=== PATIENT | female | born 1960 | race Caucasian/White ===

== ENCOUNTER 2018-05-17 08:50 | Day surgery (SDC) | payer MEDICAID ==
[2018-05-17] MEDS ORDERED: GABA-532 PO (09:32)
[2018-05-17] MEDS ORDERED: METF500T PO (09:33)
[2018-05-17] MEDS ORDERED: LISI-600 PO (09:33)
[2018-05-17] MEDS ORDERED: LORA10TA7 PO (09:34)
[2018-05-17] MEDS ORDERED: SIMV20TA5 PO (09:34)
[2018-05-17] MEDS ORDERED: CEPH-572 PO (09:35)
== END 2018-05-17 11:04 | disposition home or self-care (01) ==
LOC: WOUND CARE 08:50
PROVIDERS: ATTEND Surgery
DX: E11.621 Type 2 diabetes mellitus with foot ulcer (principal); L97.411 Non-pressure chronic ulcer of right heel and midfoot limited to breakdown of skin; E11.40 Type 2 diabetes mellitus with diabetic neuropathy, unspecified; E11.65 Type 2 diabetes mellitus with hyperglycemia
CPT/HCPCS: 36416; 82948; 99205; A4414; A6196; L3260

== ENCOUNTER 2018-05-24 08:45 | Outpatient (CLI) | payer MEDICAID ==
[~2018-05-24 08:45] MED LIST: CEPH-572 PO; GABA-532 PO; LISI-600 PO; LORA10TA7 PO; METF500T PO; SIMV20TA5 PO
== END 2018-05-24 10:32 | disposition home or self-care (01) ==
LOC: WOUND CARE 08:45 → EDSTATUS 09:00 → WOUND CARE 10:32
PROVIDERS: ATTEND Surgery
DX: E11.621 Type 2 diabetes mellitus with foot ulcer (principal); L97.411 Non-pressure chronic ulcer of right heel and midfoot limited to breakdown of skin; E11.40 Type 2 diabetes mellitus with diabetic neuropathy, unspecified; E11.65 Type 2 diabetes mellitus with hyperglycemia
CPT/HCPCS: 82948; 99215; A4414

== ENCOUNTER 2018-07-12 08:18 | Outpatient (CLI) | payer MEDICAID ==
[~2018-07-12 08:18] MED LIST changes: -CEPH-572 PO
== END 2018-07-12 10:20 | disposition home or self-care (01) ==
LOC: WOUND CARE 08:18
PROVIDERS: ATTEND Surgery
DX: E11.621 Type 2 diabetes mellitus with foot ulcer (principal); L97.511 Non-pressure chronic ulcer of other part of right foot limited to breakdown of skin; E11.65 Type 2 diabetes mellitus with hyperglycemia; E11.40 Type 2 diabetes mellitus with diabetic neuropathy, unspecified
CPT/HCPCS: 99215

== ENCOUNTER 2023-02-18 18:22 | Inpatient (IN) | payer MEDICAID, OTHER ==
[~2023-02-18] VITALS: Ht 162.6 cm; Wt 79.1 kg
[~2023-02-18 18:22] MED LIST changes: -LISI-600 PO; +LISI20TA28 PO; +SIMV-42 PO; -SIMV20TA5 PO
[2023-02-18 18:40] LABS: BASOPHILS # (AUTO) 0.1 X10'3 (0-0.2); BASOPHILS % (AUTO) 0.8 % (0-1); EOSINOPHILS # (AUTO) 0.2 X10'3 (0-0.9); EOSINOPHILS % (AUTO) 1.7 % (0-6); HEMATOCRIT 45.6 % (35.0-45.0); HEMOGLOBIN 15.5 g/dl (12.0-16.0); LYMPHOCYTES # (AUTO) 4.1 X10'3 (1.1-4.8); LYMPHOCYTES % (AUTO) 38.3 % (21-51); MEAN CORPUSCULAR HEMOGLOBIN 29.8 PG (27.0-31.0); MEAN CORPUSCULAR HGB CONC 33.9 g/dL (33.0-36.5); MEAN PLATELET VOLUME 8.8 FL (7.4-10.4); MONOCYTES # (AUTO) 0.9 X10'3 (0-0.9); MONOCYTES % (AUTO) 8.3 % (2-12); NEUTROPHILS # (AUTO) 5.4 X10'3 (1.8-7.7); NEUTROPHILS % (AUTO) 50.9 % (42-75); PLATELET COUNT 315 X10'3 (140-440); RED BLOOD COUNT 5.19 X10'6 (4.20-5.60); WHITE BLOOD COUNT 10.7 X10'3 (4.5-11.0)
[2023-02-18 18:58] LABS: ALANINE AMINOTRANSFERASE 33 U/L (12-78); ALBUMIN 4.4 G/DL (3.4-5.0); ALBUMIN/GLOBULIN RATIO 1.1 (1.1-1.5); ALKALINE PHOSPHATASE 111 IU/L (46-116); ANION GAP 16 (8-16); ASPARTATE AMINO TRANSFERASE 33 U/L (10-37); BILIRUBIN,TOTAL 0.6 MG/DL (0.1-1.0); BLOOD UREA NITROGEN 20 MG/DL (7-18); BUN/CREATININE RATIO 16.4 (10.0-20.0); CALCIUM 9.6 MG/DL (8.5-10.1); CHLORIDE 100 MMOL/L (99-107); CREATININE 1.22 MG/DL (0.40-0.90); GLUCOSE 76 MG/DL (70-104); MAGNESIUM 1.1 MG/DL (1.5-2.4); SODIUM 139 MMOL/L (135-145); TOTAL CARBON DIOXIDE 22.9 MMOL/L (24-32); TOTAL PROTEIN 8.3 G/DL (6.4-8.2); eGFR 45 ML/MIN
[2023-02-18 19:02] LABS: POTASSIUM 2.7 MMOL/L (3.5-5.1)
[2023-02-18] MEDS ORDERED: potassium chloride 10mEq ER tablet PO ONE (21:00)
[2023-02-18] MEDS ORDERED: potassium Cl 20 mEq SR tablet PO ONE (22:55)
[2023-02-18] MEDS ORDERED: magnesium 2GM in 50ml NS 50 ML IV ONE (22:55)
[2023-02-18 23:38] LABS: PHOSPHORUS 2.8 MG/DL (2.3-4.5)
[2023-02-18] MEDS: potassium Cl 40MEQ/1/2NS 520ml 520 ML IV SCH (23:45)
[2023-02-19] VITALS (9 sets, daily range): BP systolic 113–159; BP diastolic 61–79
[2023-02-19] MEDS ORDERED: acetaminophen 325mg tablet PO ONE (01:15)
[2023-02-19] MEDS ORDERED: morphine 2 MG/ML inj. syringe IV PRN ×2 (01:40)
[2023-02-19] MEDS ORDERED: potassium Cl 20 mEq SR tablet PO PRN ×2 (01:40)
[2023-02-19] MEDS ORDERED: potassium Cl 40MEQ/1/2NS 520ml 520 ML IV PRN (01:40)
[2023-02-19] MEDS ORDERED: acetaminophen 325mg tablet PO PRN ×2 (01:40)
[2023-02-19] MEDS ORDERED: mag hydrox/Alum hydrox/simeth 30ml oral suspension PO PRN (01:40)
[2023-02-19] MEDS ORDERED: ondansetron 4mg rapidly disintigrating tab PO PRN (01:40)
[2023-02-19] MEDS ORDERED: metoclopramide 5 mg/ml inj IV PRN (01:40)
[2023-02-19] MEDS ORDERED: diphenhydrAMINE 25mg capsule PO PRN (01:40)
[2023-02-19] MEDS ORDERED: magnesium hydroxide 30ml (MOM) UD suspension PO PRN (01:40)
[2023-02-19] MEDS ORDERED: ondansetron/PF 4mg/2ml inj IV PRN (01:40)
[2023-02-19] MEDS ORDERED: diphenhydrAMINE 50 mg/ml inj IV PRN (01:40)
[2023-02-19] MEDS ORDERED: bisacodyl 10mg suppository rectal RC PRN (01:40)
[2023-02-19] MEDS ORDERED: magnesium 4gm in 100ml NS 100 ML IV PRN (01:40)
[2023-02-19] MEDS ORDERED: HYDROcodone/acetaminophen 10/325mg tab PO PRN (01:40)
[2023-02-19] MEDS ORDERED: acetaminophen 650mg rectal suppository RC PRN (01:40)
[2023-02-19] MEDS ORDERED: normal saline 1000ml 1,000 ML IV SCH (01:40)
[2023-02-19] MEDS ORDERED: magnesium Cl slow-release 64mg tablet PO PRN (01:40)
[2023-02-19] MEDS ORDERED: HYDROcodone/acetaminophen 5mg/325mg tablet PO PRN (01:40)
[2023-02-19] MEDS ORDERED: DEXTROSE 15 GM of carb/4 tabs (each vial/BOTTLE has 4 tablets) PO PRN ×2 (01:45)
[2023-02-19] MEDS ORDERED: dextrose 50%-water 50ml dispensing syringe IV PRN ×2 (01:45)
[2023-02-19] MEDS ORDERED: insulin Lispro (HumaLOG) vial - multi-dose SQ SCH (01:45)
[2023-02-19] MEDS ORDERED: MESSAGE TO PHARMACY PO ONE (01:45)
[2023-02-19] MEDS ORDERED: glucagon, human recombinant 1mg kit SUBCUT PRN (01:45)
[2023-02-19 02:16] LABS: APTT 32 SECONDS (22-32); D-DIMER 0.85 MG/L FEU (0-0.50)
[2023-02-19 02:17] LABS: HEMOGLOBIN A1C 7.7 % (4.5-6.2)
--- NOTE | 2023-02-19 03:05 | NUR ---
pt. placed on hospital bed for comfort.
[2023-02-19] MEDS: potassium Cl 40MEQ/1/2NS 520ml 520 ML IV SCH (04:29)
[2023-02-19] MEDS ORDERED: LORazepam 2 mg/ml vial IV ONE (05:15)
[2023-02-19 06:52] LABS: MAGNESIUM 1.6 MG/DL (1.5-2.4); POTASSIUM 4.4 MMOL/L (3.5-5.1)
[2023-02-19] MEDS ORDERED: pantoprazole 40mg Tablet.DR PO SCH (07:30)
[2023-02-19] MEDS ORDERED: heparin, porcine 5000 units/ml vial SQ SCH (08:00)
[2023-02-19] MEDS ORDERED: aspirin 81mg, enteric-coated 1 TAB TABLET.DR PO SCH (08:00)
[2023-02-19] MEDS ORDERED: docusate sod 100mg capsule PO SCH (08:00)
[2023-02-19] MEDS ORDERED: K and/or MAG REPLACEMENT MC SCH (08:00)
[2023-02-19] MEDS ORDERED: nitroGLYCERIN 0.2mg/hour patch TD SCH (08:00)
[2023-02-19] MEDS ORDERED: lisinopril 20mg tablet PO SCH (08:00)
[2023-02-19] MEDS ORDERED: regadenoson 0.4mg/5ml syringe IV ONE (08:10)
--- NOTE | 2023-02-19 08:34 | NUR ---
pt out to stress test via wheelchair with stress test rn
--- NOTE | 2023-02-19 10:25 | NUR ---
LISINOPRIL NOT GIVEN PER PHARMACY NOTE TO HOLD MEDICATION
[2023-02-19] MEDS ORDERED: ASPI-1071 PO (15:45)
--- NOTE | 2023-02-19 16:48 | NUR ---
Patient discharged with all belongings. Aware she is to pick up driver and start new Rx for aspirin. States she feels "really tired'. Educated her on diet and nutrition, rest. Echo completed just prior to discharge. Out via wheelchair to private vehicle with friend driving.
[2023-02-19] MEDS ORDERED: metFORMIN 500mg tablet PO SCH (17:30)
[2023-02-19] MEDS ORDERED: temazepam 15mg capsule PO PRN (21:00)
[2023-02-19] MEDS ORDERED: insulin glargine (Lantus) pen - multi-dose SQ SCH (21:00)
[2023-02-19] MEDS ORDERED: gabapentin 300mg capsule PO SCH (21:00)
[2023-02-20] MEDS ORDERED: atorvastatin 20mg tablet PO SCH (08:00)
[2023-02-20] MEDS ORDERED: loratadine 10mg tablet PO SCH (08:00)
[2023-02-20] MEDS ORDERED: lisinopril 20mg tablet PO SCH (08:00)
== END 2023-02-19 16:48 | disposition home or self-care (01) | DRG 305 ==
LOC: ER 18:22 → ED HOLD 02-19 01:43
PROVIDERS: ADMIT Family Medicine; ATTEND Internal Medicine
PROC: 4A02XM4 Measurement of Cardiac Total Activity, External Approach (ICD-10-PCS; principal; 2023-02-19)
PROC: 3E033HZ Introduction of Radioactive Substance into Peripheral Vein, Percutaneous Approach (ICD-10-PCS; 2023-02-19)
DX: I16.1 Hypertensive emergency (principal); E78.5 Hyperlipidemia, unspecified; E83.42 Hypomagnesemia; E87.6 Hypokalemia; E11.40 Type 2 diabetes mellitus with diabetic neuropathy, unspecified; H92.02 Otalgia, left ear; R07.2 Precordial pain; F41.9 Anxiety disorder, unspecified; I10 Essential (primary) hypertension; Z79.899 Other long term (current) drug therapy; Z88.0 Allergy status to penicillin; Z88.2 Allergy status to sulfonamides; Z88.8 Allergy status to other drugs, medicaments and biological substances; Z90.49 Acquired absence of other specified parts of digestive tract
CPT/HCPCS: 36415; 71045; 78452; 80053; 82948; 83036; 83735; 83880; 84100; 84132; 84443; 84484; 85025; 85379; 85610; 85730; 93017; 93306; 96365; 99285; A9500; G0378; J1644; J2060; J2785; J3475; J3480; J7030

== ENCOUNTER 2025-05-08 14:15 | Emergency (ER) | payer OTHER, MEDICARE ==
[~2025-05-08] VITALS: Ht 162.6 cm; Wt 71.8 kg
[~2025-05-08 14:15] MED LIST changes: +ASPI-1071 PO
--- NOTE | 2025-05-08 15:34 | Physician Documentation ---
History of Present Illness ~ General Chief Complaint: Multiple Medical Complaints Stated Complaint: MULTIPLE MEDICAL COMPLAINTS Time Seen by MD: 15:11 History of Present Illness Initial Comments This 65-year-old female with a history of type 2 diabetes and peripheral neuropathy presents with three days of lower lip pain along with sores to bilateral feet and right anterior leg redness and tenderness. Patient reports no fevers though reports feeling chilled last night. Patient reports no other acute symptoms or concerns. Medication Reconciliation Allergies: Coded Allergies: Sulfa (Sulfonamide Antibiotics) (Verified Allergy, Intermediate, 05/17/18) ampicillin (Verified Allergy, Intermediate, 05/17/18) nitrofurantoin (Verified Allergy, Intermediate, 05/17/18) Scheduled Aspirin (Ecotrin*), 1 TAB PO DAILY Cephalexin*Monohydrate* (Keflex*), 1 CAP PO QID Gabapentin (Gabapentin), 1 CAP PO Q8H, (Reported) Lidocaine HCl (Lidocaine HCl Viscous), 5 ML PO Q8H Lisinopril (Lisinopril), 1 TAB PO DAILY, (Reported) Loratadine (Loratadine), 1 TAB PO DAILY, (Reported) Metformin Hcl* (Glucophage*), 2 TAB PO BIDBD, (Reported) Simvastatin* (Zocor*), 1 TAB PO HS, (Reported) Scheduled PRN Diphenhydramine HCl (Diphenhydramine HCl), 5 ML PO Q8H PRN for mouth sores Mag Hydrox/Al Hydrox/Simeth* (Maalox Advanced Suspension*), 5 ML PO Q8H PRN for mouth sores Past Medical History Past Medical History: Hypertension, Diabetes Past Surgical History: cholecystectomy Alcohol Use: None Drug Use: none Review of Systems ROS Mouth sores, foot abrasions, redness to right leg as stated above in the HPI, otherwise all systems are reviewed and negative. Physical Exam Physical Exam Vital Signs: Temperature: 98.2, Heart Rate: 84, Respiratory Rate: 16, BP: 151/120, Pulse Oximetry: 99, Weight: 71.820 Oxygen Flow Rate: 0 Physical Exam VITALS: Reviewed and as above. GENERAL: Alert, nontoxic appearing, no apparent distress. HEENT: Two ulcerations to inner lower anterior lip. No tonsillar erythema or swelling, no elevation of the tongue, no submandibular swelling RESPIRATORY: No increased work of breathing, no respiratory distress, speaking in full clear sentences, lung sounds clear in all [place] CV: Regular rate and rhythm no murmur SKIN: Abrasion to left lateral foot without significant surrounding erythema and without swelling or discharge, abrasion to medial aspect of right 1st toe without significant surrounding erythema and without swelling or discharge. Skin of right anterior [place] approximately 10 cm by 6 cm of well demarcated erythema that is tender to palpation without induration, fluctuance, or purulence Progress Results/Orders Results/Orders Completed Orders - DEBRA CALLAWAY C[facility] DINNER Lidocaine 2% Viscous (Xylocaine 2% Visco (05/08/25 15:25) Diphenhydramine Oral Solution (Hydramine (05/08/25 15:25) Mag & Alum Hydrox/Simeth Susp (Maalox Or (05/08/25 15:25) Cephalexin Capsule (Keflex Capsule) (05/08/25 15:25) Acetaminophen 325mg Tablet (Tylenol Tabl (05/08/25 16:20) Vital Signs 05/08/25 05/08/25 05/08/25 14:20 15:25 16:38 Temp 98.2 98.2 Pulse 82 84 84 Resp 16 16 16 B/P (MAP) 183/101 151/120 (130) 151/102 Pulse Ox 97 99 99 O2 Flow Rate 0 0 Laboratory Tests Test 05/08/25 15:04 Glucometer 196 H Medical Decision Making Findings This 65-year-old female presented to the emergency department due to multiple medical concerns including sores to her mouth, abrasions to bilateral feet, and pain and swelling to her anterior right [place]. On physical exam sores to mouth are consistent with aphthous ulcers, and redness to anterior [place] is concerning for erysipelas or early cellulitis. Abrasions to feet are superficial and do not have evidence of infection as there is minimal surrounding erythema, and no induration, fluctuance, or discharge. Patient is otherwise well-appearing benign physical exam and stable vital signs. Patient medicated for pain and given 1st dose of antibiotic, patient to be treated outpatient with course of antibiotics and provided prescription for topical anesthetic for mouth. Patient is to follow up with primary care provider, patient verbalized understanding of follow up instructions and return to care precautions. Differential Diagnosis Angioedema, dental pain, lacerations, diabetic ulcers, cellulitis, abscess, sepsis, contact dermatitis, allergic reaction Departure Disposition: 01 HOME / SELF CARE / HOMELESS Impression: Primary Impression: Cellulitis Qualified Codes: L03.115 - Cellulitis of right lower limb Additional Impressions: Oral aphthous ulcer Abrasions of multiple sites Discharge Instructions: Cellulitis, Adult, [id number] Additional Instructions: The source on your feet do not appear to be infected at this time though I recommend switching your shoes as it sounds like you are shoe change may have cause this, please discuss diabetic foot care with your primary care provider. Keep the wounds to your feet clean dry and covered. Please use the prescribed viscous lidocaine, diphenhydramine, and Maalox as a mouthwash 3 times a day for the pain to your mouth, combine 5 mL of each ingredient for a total of 15 mL of mouthwash swish and spit, do not swallow. Please take the antibiotics as p rescribed for the possible skin infection to your right leg, keep this area clean and dry. You may use [id number] medications such as ibuprofen and or Tylenol as needed for pain as directed by the [id number] packaging. Please follow up with your primary care provider in the next few days. Please return to the emergency department for any new or worsening concerning symptoms including but not limited to worsening pain and swelling to right leg, or if you develop a fever over 100.4 that does not lower with ibuprofen or Tylenol. Referrals: NO PRIMARY CARE PROVIDER (PCP) Prescriptions Cephalexin*Monohydrate* (Keflex*) 500 Mg Capsule 1 CAP PO QID for 5 Days, #20 CAP Prov: DEBRA CALLAWAYP 05/08/25 Mag Hydrox/Al Hydrox/Simeth* (Maalox Advanced Suspension*) 200 Mg-200 Mg-20 Mg/5 Ml Oral.susp 5 ML PO Q8H PRN for mouth sores for 6 Days, #100 ML Swish and Spit Prov: DEBRA CALLAWAYP 05/08/25 Diphenhydramine HCl (Diphenhydramine HCl) 12.5 Mg/5 Ml Elixir 5 ML PO Q8H PRN for mouth sores for 6 Days, #120 ML 0 Refills Swish and Spit Prov: DEBRA CALLAWAYP 05/08/25 Lidocaine HCl (Lidocaine HCl Viscous) 2 % Solution 5 ML PO Q8H for mouth sore pain for 6 Days, #100 ML 0 Refills Swish and Spit Prov: DEBRA CALLAWAY 05/08/25 Education Educated: Patient Educated regarding: diagnosis, treatment, prognosis, need for follow up Signature Scribe Signature: No scribe Attestation: The note accurately reflects work and decisions made by me.EMANUEL Perera 05/09/25 00:40 DEBRA CALLAWAY May 08, 2025 15:34
[2025-05-08] MEDS ORDERED: DIPH-930 PO (15:43)
[2025-05-08] MEDS ORDERED: MAG355OR18 PO (15:43)
[2025-05-08] MEDS ORDERED: CEPH-585 PO (15:43)
[2025-05-08] MEDS ORDERED: LIDO15SO9 PO (15:43)
[2025-05-08] MEDS: cephalexin 250mg capsule PO ONE (16:02)
[2025-05-08] MEDS: LIDOcaine 2% Viscous 15ml cup MM ONE (16:02)
[2025-05-08] MEDS: mag hydrox/Alum hydrox/simeth 30ml oral suspension PO ONE (16:02)
[2025-05-08] MEDS: diphenhydrAMINE 25 MG/10 ML UD oral solution PO ONE (16:15)
[2025-05-08] MEDS: acetaminophen 325mg tablet PO ONE (16:32)
[2025-05-08 16:38] VITALS: BP 151/102; PULSE 84; RESP 16; TEMP 98.2; O2SAT 99
== END 2025-05-08 16:39 | disposition home or self-care (01) ==
LOC: ER 14:16
DX: S90.812A Abrasion, left foot, initial encounter (principal); S90.811A Abrasion, right foot, initial encounter; L03.115 Cellulitis of right lower limb; E11.42 Type 2 diabetes mellitus with diabetic polyneuropathy; I10 Essential (primary) hypertension; K12.0 Recurrent oral aphthae; Z88.0 Allergy status to penicillin; Z88.1 Allergy status to other antibiotic agents; Z88.2 Allergy status to sulfonamides; Z79.82 Long term (current) use of aspirin; Z88.8 Allergy status to other drugs, medicaments and biological substances; Z90.49 Acquired absence of other specified parts of digestive tract; X58.XXXA Exposure to other specified factors, initial encounter; Y93.89 Activity, other specified; Y92.89 Other specified places as the place of occurrence of the external cause; Y99.8 Other external cause status
CPT/HCPCS: 82948; 99284; Q0163